=== PATIENT | male | born 1975 | race Caucasian/White ===

== ENCOUNTER 2017-07-27 10:27 | Emergency (ER) | payer SELFPAY ==
[2015-09-28 17:28] VITALS: BP 160/92
== END 2017-07-27 10:37 | disposition left against medical advice (07) ==
LOC: ER 10:27
DX: G89.29 Other chronic pain (principal)

== ENCOUNTER 2020-10-30 16:24 | Emergency (ER) | payer SELFPAY ==
[~2020-10-30] VITALS: Ht 188 cm; Wt 122.0 kg
[2020-10-30] MEDS ORDERED: DIPH,PERTUSS(ACELL),TET VAC/PF 0.5 ML SYRINGE. VAX IM ONE (17:15)
[2020-10-30] MEDS ORDERED: fentaNYL PF VIAL 100 MCG/2 ML VIAL IVP ONE ×2 (17:15→18:45)
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
[2020-10-30 17:39] LABS: BASO # 0.1 x10^3/uL (0.0-0.2); BASO % 1 % (0-3); EOS # 0.3 x10^3/uL (0.0-0.7); EOS % 2 % (0-3); HEMATOCRIT 43.4 % (39.0-53.0); HEMOGLOBIN 14.7 g/dL (13.0-17.5); LYMPH # 1.7 x10^3/uL (1.0-4.8); LYMPH % 13 % (24-48); MEAN CORPUSCULAR HEMOGLOBIN 28 pg (25-35); MEAN CORPUSCULAR HGB CONC 34 g/dL (31-37); MEAN CORPUSCULAR VOLUME 83 fL (79-100); MONO # 0.7 x10^3/uL (0.0-1.1); MONO % 6 % (0-9); NEUT # 10.2 x10^3/uL (1.8-7.7); NEUT % 79 % (31-73); PLATELET COUNT 336 x10^3/uL (140-400); RED BLOOD COUNT 5.25 x10^6/uL (4.30-5.70); RED CELL DISTRIBUTION WIDTH 14.2 % (11.5-14.5)
[2020-10-30 17:48] LABS: CREATININE 1.1 mg/dL (0.7-1.3); GFR 71.8; POTASSIUM 4.1 mmol/L (3.5-5.1)
[2020-10-30 17:49] LABS: PROTHROMBIN TIME PATIENT 12.6 SEC (11.7-14.0)
[2020-10-30 17:53] LABS: ALBUMIN 3.3 g/dL (3.4-5.0); ALBUMIN/GLOBULIN RATIO 0.9 (1.0-1.7); TOTAL BILIRUBIN 0.5 mg/dL (0.2-1.0)
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
[2020-10-30] MEDS ORDERED: NEOMY/BACITR/POLYMYXIN OINT PACKET. TP ONE (18:30)
[2020-10-30] MEDS ORDERED: CIPR500T94 PO (18:32)
[2020-10-30] MEDS ORDERED: CEPH500C PO (18:32)
[2020-10-30] MEDS ORDERED: HYDR-2761 PO (18:32)
[2020-10-30 19:19] VITALS: BP 164/81
== END 2020-10-30 20:00 | disposition home or self-care (01) ==
LOC: ER 16:24
DX: S91.332A Puncture wound without foreign body, left foot, initial encounter (principal); S99.812A Other specified injuries of left ankle, initial encounter; R60.0 Localized edema; F17.200 Nicotine dependence, unspecified, uncomplicated; Z98.890 Other specified postprocedural states; V98.8XXA Other specified transport accidents, initial encounter; Y93.89 Activity, other specified; Y92.89 Other specified places as the place of occurrence of the external cause; Y99.8 Other external cause status
CPT/HCPCS: 36415; 73590; 73610; 73630; 80053; 85025; 85610; 90471; 90715; 96374; 96376; 99284; J3010